=== PATIENT | male | born 1970 | race Caucasian/White ===

== ENCOUNTER 2017-01-22 14:16 | Emergency (ER) | payer OTHER ==
[~2017-01-22] VITALS: Ht 154.9 cm; Wt 90.9 kg
[2017-01-22] MEDS ORDERED: LISI-662 PO (14:35)
[2017-01-22 16:26] VITALS: BP 136/84
[2017-01-22] MEDS ORDERED: GuaiFENesin/D-METHORPHAN [SUGAR-FREE] 200-20MG/10 ML SYRUP UDCUP PO ONE (16:45)
[2017-01-22] MEDS ORDERED: IBUPROFEN 800 MG TABLET PO ONE (16:45)
== END 2017-01-22 16:57 | disposition home or self-care (01) ==
LOC: EMS 14:18
DX: J06.9 Acute upper respiratory infection, unspecified (principal); I10 Essential (primary) hypertension; F17.210 Nicotine dependence, cigarettes, uncomplicated
CPT/HCPCS: 99283